=== PATIENT | male | born 1955 | race Asian ===

== ENCOUNTER 2019-09-13 23:15 | Emergency (ER) | payer MEDICARE, OTHER ==
[~2019-09-13] VITALS: Ht 165.1 cm; Wt 77.1 kg
[2019-09-13 23:15] VITALS: BP 133/81
--- NOTE | 2019-09-13 23:21 | NUR ---
ED Nurse Note: PT BROUGHT IN BY [facility]ANCE [facility] 829 FROM HOME C/O SKIN INJURY ON THE RIGHT ARM. PT PRESENTS WITH OPEN WOUND WITH HEMATOMA. PT VSS, PT IS AGGRESSIVE AND SWEARING AT [facility] AND PRIMARY RN. PT STATES HE WISHES TO BE TESTED FOR COVID, STATING "I WANT TO GET TESTED FOR COVID BECAUSE THE WOUND MIGHT BE RELATED TO IT" (IN GREEK). PER PATIENT, HE HAS HX ASTHMA AND TAKES PREDNISONE SINCE 2008.
--- NOTE | 2019-09-13 23:22 | NUR ---
ED Nurse Note: pt does not present with fever, cough, or other respiratory symptoms.
--- NOTE | 2019-09-13 23:25 | NUR ---
ED Nurse Note: DRESSING AND OINTMENT APPLIED.
--- NOTE | 2019-09-13 23:27 | Emergency Room Report ---
History of Present Illness General Source: Patient Present Illness [facility] This is a 64-year-old Pashto speaking male with a history of asthma. He presents with chief complaint of skin abrasion on his right forearm. He thinks that he has coronavirus. He called 911 twice. The first time the paramedics that they offer him a Band-Aid but he refused and start yelling profanity at them. They left that he called 911 again. Patient is convinced that he has coronavirus because he has a cut on his arm. He said because of his asthma transmit through his arm. He want testing done. Patient denies any trauma. He is taking prednisone daily. There is no fever chills. No cough or congestion. No shortness of breath. No other symptoms. Allergies: Coded Allergies: No Known Allergies (Unverified , 09/13/19) Patient History Past Medical History: see triage record, old chart reviewed, asthma Past Surgical History: none Pertinent Family History: none Social History: Denies: smoking Immunizations: other Reviewed Nursing Documentation: PMH: Agreed; PSxH: Agreed Review of Systems Eye: Denies: eye pain, blurred vision ENT: Denies: ear pain, nose congestion, throat swelling Respiratory: Denies: cough, shortness of breath Cardiovascular: Denies: chest pain, palpitations Gastrointestinal: Denies: abdominal pain, diarrhea, nausea, vomiting Musculoskeletal: Denies: back pain, joint pain Skin: Denies: rash Neurological: Denies: headache, numbness Endocrine: Denies: increased thirst, increased urine Hematologic/Lymphatic: Denies: easy bruising All Other Systems: negative except mentioned in HPI Physical Exam Vitals unremarkable Sp02 EP Interpretation: reviewed, normal General Appearance: well appearing, no apparent distress, alert Head: normocephalic, atraumatic Eyes: bilateral eye PERRL, bilateral eye EOMI ENT: hearing grossly normal, normal pharynx Neck: full range of motion, supple, no meningismus Respiratory: chest non-tender, lungs clear, normal breath sounds Cardiovascular #1: regular rate, rhythm, no murmur Gastrointestinal: normal bowel sounds, non tender, no mass, no organomegaly, no bruit, non-distended Musculoskeletal: back normal, normal range of motion, gait/station normal, other - Right forearm on the dorsal aspect there is an area about 3 x 5 cm of ecchymosis with small superficial skin tear. No active bleeding. Psychiatric: mood/affect normal Medical Decision Making Diagnostic Impression: Primary Impression: Avulsion of skin of forearm Qualified Codes: S51.801A - Unspecified open wound of right forearm, initial encounter ER Course Patient with superficial skin avulsion of his right forearm. He has no symptoms of any infection. Try to reassure this patient but were not getting through. He is very concerned about having coronavirus. I explained to him that he has no symptoms that warrant testing since testing kit is very limited. Told him that he does not have coronavirus just based on the cut on his arm. Only treatment is keeping it clean. Will discharge home. Status: improved Disposition: HOME, SELF-CARE Condition: Stable Additional Instructions: You do not have coronavirus just based on a skin tear. You do not meet criteria for testing. Follow-up with your doctor in 7 days. Keep wound clean. Return if symptoms worsen. Marques Alba MD Sep 13, 2019 23:27
[2019-09-13 23:30] VITALS: BP 130/90
[2019-09-13] MEDS ORDERED: Neosporin Oint Ud Pkt TOPIC ONE (23:30)
--- NOTE | 2019-09-13 23:30 | NUR ---
ER DISCHARGE NOTE: Patient is cleared to be discharged per ERMD, pt is aox4, on room air, with stable vital signs. pt was given dc instructions, pt was able to verbalize understanding, pt id band removed without complications. pt is able to ambulate with steady gait. pt took all belongings.
== END 2019-09-13 23:30 | disposition home or self-care (01) ==
LOC: EDBD 23:15 → EMR 23:30
DX: S51.801A Unspecified open wound of right forearm, initial encounter (principal); X58.XXXA Exposure to other specified factors, initial encounter; Y92.9 Unspecified place or not applicable
CPT/HCPCS: 99282